=== PATIENT | male | born 1985 | race Caucasian/White ===

== ENCOUNTER → 2017-05-22 | Outpatient (CLI) | payer BC ==
--- NOTE | 2017-05-23 09:49 | RADRPT ---
PROCEDURE: XR Knee. CLINICAL INDICATION: Right knee pain TECHNIQUE: 3 images of the right knee are available for review. COMPARISON: None available FINDINGS: There is no acute fracture. Joint spaces are preserved. There is no joint effusion. There is a que stionable 2 mm body projecting along the posterior aspect the joint on the lateral view. Soft tissue s are grossly unremarkable. IMPRESSION: 1. No radiographic evidence of acute osseous abnormality. 2. Questionable 2 mm body projecting over the posterior aspect of the knee joint on the lateral vie w. RPTAT: UU .Richard Ríos MD, MD Date Time Electronically viewed and signed by .Richard Ríos MD, on 05/22/2017 16:00 .Desean/
== END | disposition home or self-care (01) ==
LOC: RAD 12:11
PROVIDERS: ATTEND Internal Medicine
DX: M17.11 Unilateral primary osteoarthritis, right knee (principal)
CPT/HCPCS: 73560

== ENCOUNTER 2017-07-23 17:47 | Inpatient (IN) | payer BC ==
[~2017-07-23] VITALS: Ht 172.7 cm; Wt 87.0 kg
[2017-07-23] MEDS ORDERED: ONDANSETRON 4 MG INJ IV STA (20:41)
[2017-07-23] MEDS ORDERED: morphine 4 MG/ML VIAL IV STA (20:41)
--- NOTE | 2017-07-23 20:54 | ERD ---
ER Documentation Chief Complaint Date/Time DATE: 07/23/17 TIME: 20:51 Chief Complaint ABD PAIN, NAUSEA, VOMITING, ONSET SEVERAL DAYS HPI This is a 31-year-old male who presents the emergency department today complaining of abdominal pain that started yesterday. He ate a small yesterday but is unsure if that is what causing his symptoms. Patient states he has been vomiting is been having difficulty keeping anything down. States he took Advil yesterday and Pepto-Bismol. States his stool today was black. States he feels constipated now states that yesterday he had a fever. ROS All systems reviewed and are negative except as per history of present illness. Medications Home Meds No Active Prescriptions or Reported Meds Allergies Allergies: Coded Allergies: No Known Drug Allergies (Verified Allergy, Unknown, 05/20/14) PMhx/Soc Medical and Surgical Hx: pt denies Medical Hx History of Surgery: Yes (LEFT KNEE) Anesthesia Reaction: No Hx Neurological Disorder: No Hx Respiratory Disorders: No Hx Cardiac Disorders: No Hx Psychiatric Problems: No Hx Miscellaneous Medical Probl: No Hx Alcohol Use: Yes (OCCASSIONAL) Hx Substance Use: No Hx Tobacco Use: Yes Smoking Status: Current every day smoker Physical Exam Vitals Vital Signs Date Time Temp Pulse Resp B/P Pulse Ox O2 Delivery O2 Flow Rate FiO2 07/23/17 17:54 98.6 90 18 132/81 97 Physical Exam Const: NAD Head: Atraumatic Eyes: Normal Conjunctiva ENT: Normal External Ears, Nose and Mouth. Neck: Full range of motion..~ No meningismus. Resp: Clear to auscultation bilaterally Cardio: Regular rate and rhythm, no murmurs Abd: Soft, diffuse lower abdominal pain non distended. Normal bowel sounds : Rectal exam shows no evidence of hemorrhoids externally. Skin: No petechiae or rashes Back: No midline or flank tenderness Ext: No cyanosis, or edema Neur: Awake and alert Psych: Normal Mood and Affect Result Diagram: 07/23/17205307/23/172053 Results 24 hrs Laboratory Tests Test 07/23/17 20:25 07/23/17 20:39 07/23/17 20:54 Urine Color YELLOW Urine Clarity CLEAR Urine pH 5.0 Urine Specific [place] 1.012 Urine Ketones NEGATIVEmg/dL Urine Nitrite NEGATIVEmg/dL Urine Bilirubin NEGATIVEmg/dL Urine Urobilinogen NEGATIVEmg/dL Urine Leukocyte Esterase NEGATIVELeu/ul Urine Hemoglobin NEGATIVEmg/dL Urine Glucose NEGATIVEmg/dL Urine Total Protein NEGATIVEmg/dl Stool Occult Blood NEGATIVE White Blood Count 9.310^3/ul Red Blood Count 4.8610^6/ul Hemoglobin 15.3g/dl Hematocrit 44.6% Mean Corpuscular Volume 91.8fl Mean Corpuscular Hemoglobin 31.5pg Mean Corpuscular Hemoglobin Concent 34.3g/dl Red Cell Distribution Width 13.0% Platelet Count 35144^3/UL Mean Platelet Volume 11.1fl Neutrophils % 59.7% Lymphocytes % 26.0% Monocytes % 9.8% Eosinophils % 4.0% Basophils % 0.1% Nucleated Red Blood Cells % 0.0/100WBC Neutrophils # 5.510^3/ul Lymphocytes # 2.410^3/ul Monocytes # 0.910^3/ul Eosinophils # 0.410^3/ul Basophils # 0.010^3/ul Nucleated Red Blood Cells # 0.010^3/ul Sodium Level 139mmol/L Potassium Level 3.8mmol/L Chloride Level 101mmol/L Carbon Dioxide Level 27mmol/L Anion Gap 15 Blood Urea Nitrogen 10mg/dl Creatinine 0.90mg/dl Glucose Level 96mg/dl Calcium Level 8.5mg/dl Total Bilirubin 0.3mg/dl Direct Bilirubin 0.00mg/dl Indirect Bilirubin 0.3mg/dl Aspartate Amino Transf (AST/SGOT) 22IU/L Alanine Aminotransferase (ALT/SGPT) 36IU/L Alkaline Phosphatase 69IU/L Total Protein 6.9g/dl Albumin 4.0g/dl Globulin 2.90g/dl Albumin/Globulin Ratio 1.37 Lipase 58U/L Current Medications Medications (Trade) Dose Ordered Sig/Prudence Route PRN Reason Start Time Stop Time Status Last Admin Dose Admin Morphine Sulfate (morphine) 4 mg ONCE STAT IV 07/23/17 20:41 07/23/17 20:43 DC 07/23/17 21:04 Ondansetron HCl (Zofran Inj) 4 mg ONCE STAT IV 07/23/17 20:41 07/23/17 20:43 DC 07/23/17 21:04 DIAGNOSTIC IMAGING REPORT Patient: CHELI VILLARREAL : 1985 Age: 31 Sex: M MR #: [id number] DOS: 07/23/172040 Ordering MD: BERONICA DINH PA-C Location: [facility] Room/Bed: PROCEDURE: CT abdomen and pelvis without intravenous contrast. CLINICAL INDICATION: Pain. TECHNIQUE: CT of the abdomen/pelvis was performed utilizing axial images with reconstructions in sagittal and coronal planes. The administered radiation dose is CTDI 13 mGy, DLP 778 mGy-cm. One or more of the following dose reduction techniques were used: automated exposure control, adjustment of the mA and/or kV according to patient size and/or use of iterative reconstruction technique. COMPARISON: No pertinent prior examinations were submitted for comparison. FINDINGS: Visualized Chest: The visualized lung bases are clear. Abdomen: The liver, spleen, pancreas, gallbladder,and adrenal glands are unremarkable. The kidneys are without hydronephrosis. Punctate nonobstructive calculi are noted within both kidneys. There is some mild to moderate dilatation of several small bowel loops throughout the abdomen. There are interspersed loops of less distended small bowel. No discrete transition point is seen. Some mild inflammatory changes surround some of the bowel loops along with some likely small bowel thickening. The appendix is normal. No intra-abdominal free air is seen. There is no evidence of intra-abdominal adenopathy or free fluid. Pelvis: There is no evidence of pelvic adenopathy or free fluid. The prostate and bladder are unremarkable. Osseous structures: Unremarkable. IMPRESSION: Mildly distended and likely thickened small bowel loops most compatible with enteritis and ileus. Some component of bowel obstruction is difficult to entirely exclude given the presence of both distended and collapsed loops of bowel. Bilateral nephrolithiasis. RPTAT: HIKT .Benedicto Gurrola MD, Date Time Electronically viewed and signed by .Benedicto Gurrola MD, on 07/23/2017 22:40 .T/ CC: BERONICA DINH PA-C Procedures/MDM This is a 31-year-old male who presents emergency department today complaining of abdominal pain, fevers, vomiting that started yesterday as well as some black stool. I suspect that the black stool is from taking the Pepto-Bismol and I have explained that to the patient however I did obtain a Hemoccult as well as laboratory workup and imaging. Laboratory workup shows no elevated white blood cell count. He is not anemic. Platelets are within normal limits. Electrolytes are within normal limits. Glucose is within normal limits. Liver enzymes are within normal limits. Lipase is within normal limits. UA is negative for infection Occult blood is negative CT abdomen pelvis noncontrast shows a mildly distended and likely thickened small bowel loops most compatible with enteritis and ileus. There is some component of bowel obstruction that is difficult to entirely exclude given the presence of both distention and collapsed loops of bowel. There are bilateral nephrolithiasis. This is likely the source of the patient's pain. Patient symptoms at this time is consistent with abdominal pain secondary to enteritis and ileus with possible bowel obstruction. I have discussed the results with Dr. Oneill is agreed to admit the patient. I have explained all results to the patient and patient has agreed to stay in the hospital for further evaluation. Patient was given morphine and Zofran here in the emergency department. Any further orders placed will be completed by Dr. Oneill or the admitting physician. Departure Diagnosis: Primary Impression: Enteritis Additional Impression: Ileus Condition: BERONICA Kunz PA-C Jul 23, 2017 20:54
[2017-07-23 21:02] LABS: ADD UMIC NO; UR ASCORBIC ACID NEGATIVE (NEGATIVE); UR BILIRUBIN (Dip) NEGATIVE (NEGATIVE); UR BLOOD (Dip) NEGATIVE (NEGATIVE); UR CLARITY CLEAR (CLEAR); UR COLOR YELLOW (YELLOW); UR GLUCOSE (Dip) NEGATIVE (NEGATIVE); UR KETONES (Dip) NEGATIVE (NEGATIVE); UR LEUKOCYTE ESTERASE (Dip) NEGATIVE Leu/ul (NEGATIVE); UR NITRITE (Dip) NEGATIVE (NEGATIVE); UR SPECIFIC GRAVITY (Dip) 1.012 (1.003-1.030); UR TOTAL PROTEIN (Dip) NEGATIVE (NEGATIVE); UR UROBILINOGEN (Dip) NEGATIVE (NEGATIVE)
[2017-07-23 21:08] LABS: BASOPHILS % 0.1 % (0.0-2.0); EOSINOPHILS # 0.4 10^3/ul (0.0-0.5); HEMATOCRIT 44.6 % (42.0-52.0); HEMOGLOBIN 15.3 g/dl (14.0-18.0); LYMPHOCYTES # 2.4 10^3/ul (0.8-2.9); MEAN CORPUSCULAR HEMOGLOBIN 31.5 pg (29.0-33.0); MEAN CORPUSCULAR HGB CONC 34.3 g/dl (32.0-37.0); MEAN CORPUSCULAR VOLUME 91.8 fl (82.0-101.0); MEAN PLATELET VOLUME 11.1 fl (7.4-10.4); MONOCYTE # 0.9 10^3/ul (0.3-0.9); MONOCYTES % 9.8 % (0.0-11.0); NEUTROPHIL # 5.5 10^3/ul (1.6-7.5); NEUTROPHILS % 59.7 % (39.0-77.0); PLATELET COUNT 211 10^3/UL (140-415); RED BLOOD COUNT 4.86 10^6/ul (4.70-6.10); WHITE BLOOD COUNT 9.3 10^3/ul (4.8-10.8)
[2017-07-23 21:26] LABS: ALBUMIN/GLOBULIN RATIO 1.37; BILIRUBIN,INDIRECT 0.3 mg/dl (0-1.1); BILIRUBIN,TOTAL 0.3 mg/dl (0.2-1.3); CALCIUM 8.5 mg/dl (8.4-10.2); CREATININE 0.9 mg/dl (0.61-1.24); POTASSIUM 3.8 mmol/L (3.5-5.1); TOTAL PROTEIN 6.9 g/dl (6.1-8.1)
--- NOTE | 2017-07-23 22:40 | RADRPT ---
PROCEDURE: CT abdomen and pelvis without intravenous contrast. CLINICAL INDICATION: Pain. TECHNIQUE: CT of the abdomen/pelvis was performed utilizing axial images with reconstructions in s agittal and coronal planes. The administered radiation dose is CTDI 13 mGy, DLP 778 mGy-cm. One or m ore of the following dose reduction techniques were used: automated exposure control, adjustment of the mA and/or kV according to patient size and/or use of iterative reconstruction technique. COMPARISON: No pertinent prior examinations were submitted for comparison. FINDINGS: Visualized Chest: The visualized lung bases are clear. Abdomen: The liver, spleen, pancreas, gallbladder,and adrenal glands are unremarkable. The kidneys are without hydronephrosis. Punctate nonobstructive calculi are noted within both kidne ys. There is some mild to moderate dilatation of several small bowel loops throughout the abdomen. There are interspersed loops of less distended small bowel. No discrete transition point is seen. Some mi ld inflammatory changes surround some of the bowel loops along with some likely small bowel thickeni ng. The appendix is normal. No intra-abdominal free air is seen. There is no evidence of intra-abdominal adenopathy or free fluid. Pelvis: There is no evidence of pelvic adenopathy or free fluid. The prostate and bladder are unremarkable. Osseous structures: Unremarkable. IMPRESSION: Mildly distended and likely thickened small bowel loops most compatible with enteritis and ileus. So me component of bowel obstruction is difficult to entirely exclude given the presence of both disten ded and collapsed loops of bowel. Bilateral nephrolithiasis. RPTAT: HIKT .Benedicto Gurrola MD, Date Time Electronically viewed and signed by .Benedicto Gurrola MD, on 07/23/2017 22:40 .T/
[2017-07-23] MEDS ORDERED: SOD CHLORIDE 0.9% 1,000 ML IV ONE (23:30)
[2017-07-24 04:34] VITALS: TEMP 97.9
[2017-07-24 05:24] VITALS: Ht 172.7 cm; Wt 87.0 kg
[2017-07-24 05:25] VITALS: BP 126/70; PULSE 70; RESP 18
[2017-07-24] MEDS ORDERED: morphine 4 MG/ML VIAL IV PRN (06:30)
[2017-07-24] MEDS ORDERED: ONDANSETRON 4 MG INJ IV PRN (06:30)
[2017-07-24] MEDS ORDERED: DEXTROSE 5%-0.45% NACL 1,000 ML IV SCH (06:30)
[2017-07-24 07:30] VITALS: BP 124/65; RESP 19
--- NOTE | 2017-07-24 09:15 | RADRPT ---
PROCEDURE: Ultrasound of the bilateral lower extremity venous system. CLINICAL INDICATION: Bilateral leg pain and swelling, deep venous thrombosis TECHNIQUE: Cox scale with and without compression, color doppler, spectral doppler of the venous system of the bilateral lower extremities was performed. Venous augmentation maneuvers were utilized . COMPARISON: No prior studies are available for comparison. FINDINGS: Right: Common femoral vein: Patent. Femoral vein: Patent. Popliteal vein: Patent. Calf veins: Patent. No soft tissue abnormalities are identified. Left: Common femoral vein: Patent. Femoral vein: Patent. Popliteal vein: Patent. Calf veins: Patent. No soft tissue abnormalities are identified. IMPRESSION: No evidence of a deep vein thrombosis within the bilateral lower extremities. RPTAT: AADD .Davie Hu MD, Date Time Electronically viewed and signed by .Davie Hu MD, on 07/24/2017 09:15 .B/
[2017-07-24] MEDS ORDERED: POTASSIUM CHLORIDE 30 MEQ in DEXTROSE 5%-0.45% NACL 1,000 ML IV SCH (10:05)
--- NOTE | 2017-07-24 10:10 | RADRPT ---
PROCEDURE: XR Abdomen. CLINICAL INDICATION: ABD PAIN TECHNIQUE: AP abdomen x-ray. COMPARISON: None. FINDINGS: The bowel gas pattern is normal. There is no evidence of obstruction. There are no abnormal calcific ations overlying the urinary tracts. The osseus structures are unremarkable. IMPRESSION: Unremarkable abdomen radiograph. Physician Will Date Time Electronically viewed and signed by Vincent Driver Physician on 07/24/2017 10:09 CS/
--- NOTE | 2017-07-24 10:38 | HP ---
DATE OF ADMISSION: 07/24/2017 CHIEF COMPLAINT AND HISTORY OF PRESENT ILLNESS: The patient is a 31-year-old gentleman well known t o me from previous followup, as outpatient, presenting to the ER with severe abdominal pain for the last 2 days. It started off 2 days ago with severe vomiting, vomited 5 times with abdominal distent ion and patient tried eating an apple yesterday, that is all he had all of yesterday and the patient had been having increasing abdominal pain and he has been taking Advil and also took Pepto-Bismol. He stated that he had bowel movements which were black. He also had a fever the day before. Denie s any dysuria or hematuria. The patient denies any history of peptic ulcer disease. No history of hepatitis or jaundice. No prior abdominal surgeries, no prior hospitalizations or any bowel obstruc tion. REVIEW OF SYSTEMS: HEAD: No history of headaches, focal weakness, or numbness. EYES: No blurry vision or glaucoma. ENT: Noncontributory. NECK: No history of thyroid disease. CHEST: No bronchitis, hay fever, or asthma. The patient does not smoke. HEART: No PND, orthopnea, palpitations. GASTROINTESTINAL: No prior gastrointestinal history of peptic ulcer disease, cholelithiasis. No ab dominal surgeries. GENITOURINARY: No history of hematuria or kidney stones. ALLERGIES: NO KNOWN ALLERGIES. FAMILY HISTORY: Noncontributory. MUSCULOSKELETAL: History of lower extremity pain since yesterday. No history of long distance air travel or DVT in the past. The patient does have right knee meniscus tear. PHYSICAL EXAMINATION: GENERAL: The patient was found to be afebrile. VITAL SIGNS: Temperature 98.0, blood pressure 124/65, respiratory rate 20 per minute. O2 saturatio n 98% on room air. HEENT: Head normocephalic. No pallor, cyanosis or icterus. Tongue is coated, whitish coating note d. No exudates noted over the oropharynx. NECK: Supple. No thyromegaly, bruits or lymphadenopathy. CHEST: Clinically clear. HEART: S1, S2 heard with no definite gallops. ABDOMEN: Mildly distended. Bowel sounds hypoactive. Mild diffuse tenderness without rebound. EXTREMITIES: No edema. Homans sign is negative. NEUROLOGIC: No localizing or lateralizing signs. LABORATORY DATA: Initial WBC count 9.3, hematocrit 44.3, platelet count 211,000. Potassium 3.8, BU N 10, creatinine 0.90. UA negative for blood or leukocyte esterase. Stool for OB is negative. CAT scan of abdomen and pelvis shows bilateral nephrolithiasis, distended and thickened small bowel loo ps compatible with enteritis and ileus. IMPRESSION: 1. Small-bowel obstruction with ileus. 2. Nephrolithiasis, no evidence of hematuria or urinary tract infection. 3. Lower extremity pain, no evidence of deep venous thrombosis on Doppler. PLAN: Keep the patient on bowel rest, IV hydration, ensure adequate potassium supplements and magne sium supplements. Will request repeat KUB and also a gastroenterology consultation with Dr. Moscoso. Dictated By: TANESHA RODAS MD SR/NTS Conf#: [id number] DID#: [id number]
[2017-07-24 11:37] LABS: BASOPHILS % 0.3 % (0.0-2.0); EOSINOPHILS # 0.2 10^3/ul (0.0-0.5); HEMATOCRIT 43.7 % (42.0-52.0); HEMOGLOBIN 14.4 g/dl (14.0-18.0); LYMPHOCYTES # 2.5 10^3/ul (0.8-2.9); LYMPHOCYTES % 32.3 % (15.0-51.0); MEAN CORPUSCULAR HEMOGLOBIN 30.3 pg (29.0-33.0); MONOCYTE # 0.8 10^3/ul (0.3-0.9); MONOCYTES % 10.6 % (0.0-11.0); NEUTROPHIL # 4.1 10^3/ul (1.6-7.5); NEUTROPHILS % 53.4 % (39.0-77.0); PLATELET COUNT 203 10^3/UL (140-415); RED BLOOD COUNT 4.75 10^6/ul (4.70-6.10); RED CELL DISTRIBUTION WIDTH 12.8 % (11.5-14.5); WHITE BLOOD COUNT 7.7 10^3/ul (4.8-10.8)
[2017-07-24 12:02] LABS: ALBUMIN 3.4 g/dl (3.3-4.9); ALBUMIN/GLOBULIN RATIO 1.06; BILIRUBIN,INDIRECT 0.4 mg/dl (0-1.1); BILIRUBIN,TOTAL 0.4 mg/dl (0.2-1.3); CALCIUM 8.7 mg/dl (8.4-10.2); CREATININE 0.81 mg/dl (0.61-1.24); TOTAL PROTEIN 6.6 g/dl (6.1-8.1)
[2017-07-24] MEDS: D5W-0.45 NACL + KCL 30 MEQ 1,000 ML IV SCH ×2 (12:13→20:16)
[2017-07-24 14:00] VITALS: BP 121/61; RESP 19
[2017-07-24] MEDS: CIPROFLOXACIN 400MG/D5W 200 ML IVPB SCH ×2 (15:08→20:16)
[2017-07-24] MEDS: metroNIDAZOLE 500 MG/NS (PMX) 100 ML IVPB SCH ×2 (16:09→22:01)
[2017-07-24 21:35] VITALS: BP 128/69; RESP 16
[2017-07-25 00:05] VITALS: BP 119/69; RESP 16
--- NOTE | 2017-07-25 02:19 | CONS ---
DATE OF ADMISSION: 07/24/2017 DATE OF CONSULTATION: GASTROENTEROLOGY CONSULTATION Dear Dr. Rodas: Thank you for your referral. HISTORY OF PRESENT ILLNESS: The patient is a pleasant 31-year-old gentleman, who came to the ER com plaining of abdominal pain confined to the right periumbilical area associated with nausea, vomiting and diarrhea. This happened after consuming food overnight from the restaurant. No GI bleeding, n o fever, no chills. He had mild headache, no chest pain, no shortness of breath, no or SENIOR SOFTWARE TESTER probl em. The patient has been taking Advil and Pepto-Bismol. REVIEW OF SYSTEMS: Knee surgery, otherwise negative. ALLERGIES: NONE. FAMILY HISTORY: Nothing contributory. PHYSICAL EXAMINATION GENERAL: Well built, nourished, not in distress. VITAL SIGNS: Stable. HEENT: Unremarkable. NECK: Supple, no thyromegaly, no lymphadenopathy. CARDIOVASCULAR: No murmur, gallop or click. LUNGS: Clear. ABDOMEN: Benign. EXTREMITIES: No edema. CENTRAL NERVOUS SYSTEM: Grossly within normal limits. LABORATORY DATA: CBC is normal. CMP is normal. CAT scan showed ileitis versus ileus. IMPRESSION: 1. Infectious enteritis, most probably bacterial versus viral. 2. Nephrolithiasis without any obstruction. 3. Lower extremity pain. PLAN: At this point is to start the patient on Cipro and Flagyl empirically, and if the symptoms im prove, then will start him on a liquid diet and gradually advance it and continue Cipro and Flagyl p .o. upon discharge. Dictated By: STUART SANTORO/DAVID Conf#: [id number] DID#: [id number] CC: TANESHA RODAS MD;*EndCC*
[2017-07-25] MEDS: D5W-0.45 NACL + KCL 30 MEQ 1,000 ML IV SCH ×3 (05:18→22:00)
[2017-07-25] MEDS: metroNIDAZOLE 500 MG/NS (PMX) 100 ML IVPB SCH ×3 (05:18→22:00)
[2017-07-25 05:22] LABS: BASOPHILS % 0.3 % (0.0-2.0); EOSINOPHILS # 0.3 10^3/ul (0.0-0.5); EOSINOPHILS % 3.7 % (0.0-7.0); HEMATOCRIT 43.3 % (42.0-52.0); HEMOGLOBIN 14.5 g/dl (14.0-18.0); LYMPHOCYTES # 2.2 10^3/ul (0.8-2.9); LYMPHOCYTES % 28.4 % (15.0-51.0); MEAN CORPUSCULAR HEMOGLOBIN 30.6 pg (29.0-33.0); MEAN CORPUSCULAR HGB CONC 33.5 g/dl (32.0-37.0); MEAN CORPUSCULAR VOLUME 91.4 fl (82.0-101.0); MEAN PLATELET VOLUME 11.3 fl (7.4-10.4); MONOCYTE # 0.7 10^3/ul (0.3-0.9); MONOCYTES % 9.3 % (0.0-11.0); NEUTROPHIL # 4.5 10^3/ul (1.6-7.5); NEUTROPHILS % 57.7 % (39.0-77.0); PLATELET COUNT 219 10^3/UL (140-415); RED BLOOD COUNT 4.74 10^6/ul (4.70-6.10); RED CELL DISTRIBUTION WIDTH 12.8 % (11.5-14.5); WHITE BLOOD COUNT 7.8 10^3/ul (4.8-10.8)
[2017-07-25 06:11] LABS: ALBUMIN 3.3 g/dl (3.3-4.9); BILIRUBIN,INDIRECT 0.5 mg/dl (0-1.1); BILIRUBIN,TOTAL 0.5 mg/dl (0.2-1.3); CREATININE 0.96 mg/dl (0.61-1.24); MAGNESIUM 1.8 mg/dl (1.7-2.5); POTASSIUM 4.1 mmol/L (3.5-5.1); TOTAL PROTEIN 6.6 g/dl (6.1-8.1)
[2017-07-25 07:24] VITALS: BP 132/73; RESP 19
[2017-07-25] MEDS: CIPROFLOXACIN 400MG/D5W 200 ML IVPB SCH ×2 (08:34→20:19)
--- NOTE | 2017-07-25 10:00 | CONS ---
Date/Time of Note Date/Time of Note DATE: 07/25/17 TIME: 09:59 Assessment/Plan Assessment/Plan Additional Assessment/Plan IMPRESSION: 1. Infectious enteritis, most probably bacterial versus viral. 2. Nephrolithiasis without any obstruction. 3. Lower extremity pain. PLAN: At this point is to start the patient on Cipro and Flagyl empirically, and if the symptoms improve, then will start him on a liquid diet and gradually advance it and continue Cipro and Flagyl p.o. upon discharge. Consultation Date/Type/Reason Admit Date/Time Jul 24, 2017 at 01:31 Initial Consult Date 24 HR Interval Summary Free Text/Dictation Patient feels better no nausea no vomiting no diarrhea. No abdominal pain Exam/Review of Systems Vital Signs Vitals Vital Signs Date Time Temp Pulse Resp B/P Pulse Ox O2 Delivery O2 Flow Rate FiO2 07/25/17 07:24 98.2 73 19 132/73 98 07/24/17 05:25 Room Air Intake and Output 07/24/17 07/24/17 07/25/17 15:00 23:00 07:00 Intake Total 300 ml 1050 ml 1100 ml Output Total 1500 ml Balance 300 ml 1050 ml -400 ml Exam Constitutional: alert, oriented, well developed Psych: nl mood/affect, no complaints Head: atraumatic, normocephalic Eyes: EOMI, PERRL, nl conjunctiva, nl lids, nl sclera ENMT: nl external ears & nose, nl lips & teeth, nl nasal mucosa & septum Neck: non-tender, supple Respiratory: clear to auscultation, normal air movement Cardiovascular: nl pulses, regular rate and rhythm Gastrointestinal: nl liver, spleen, non-tender, soft Musculoskeletal: nl extremities to inspection, nl gait and stance Extremities: normal pulses Neurological: [employer] HELPER II-XII intact, nl mental status, nl speech, nl strength Skin: nl turgor, No rash or lesions Lymph: nl lymph nodes Results Result Diagram: 07/25/17 0433 07/25/17 0433 Results 24 hrs Laboratory Tests Test 07/24/17 11:11 07/25/17 04:33 White Blood Count 7.7 7.8 Red Blood Count 4.75 4.74 Hemoglobin 14.4 14.5 Hematocrit 43.7 43.3 Mean Corpuscular Volume 92.0 91.4 Mean Corpuscular Hemoglobin 30.3 30.6 Mean Corpuscular Hemoglobin Concent 33.0 33.5 Red Cell Distribution Width 12.8 12.8 Platelet Count 203 219 Mean Platelet Volume 11.0 H 11.3 H Neutrophils % 53.4 57.7 Lymphocytes % 32.3 28.4 Monocytes % 10.6 9.3 Eosinophils % 3.0 3.7 Basophils % 0.3 0.3 Nucleated Red Blood Cells % 0.0 0.0 Neutrophils # 4.1 4.5 Lymphocytes # 2.5 2.2 Monocytes # 0.8 0.7 Eosinophils # 0.2 0.3 Basophils # 0.0 0.0 Nucleated Red Blood Cells # 0.0 0.0 Sodium Level 139 140 Potassium Level 4.0 4.1 Chloride Level 106 105 Carbon Dioxide Level 27 28 Anion Gap 10 # 11 Blood Urea Nitrogen 11 10 Creatinine 0.81 0.96 Glucose Level 90 96 Calcium Level 8.7 9.0 Total Bilirubin 0.4 0.5 Direct Bilirubin 0.00 0.00 Indirect Bilirubin 0.4 0.5 Aspartate Amino Transf (AST/SGOT) 27 23 Alanine Aminotransferase (ALT/SGPT) 39 39 Alkaline Phosphatase 66 65 Total Protein 6.6 6.6 Albumin 3.4 3.3 Globulin 3.20 3.30 H Albumin/Globulin Ratio 1.06 1.00 Amylase Level 51 Lipase 45 Magnesium Level 1.8 Medications Medications Current Medications Morphine Sulfate (morphine) 4 mg Q4H PRN IV PAIN LEVEL 7-10 Last administered on 07/24/17 07:58; Admin Dose 4 MG; Start 07/24/17 at 06:30 Ondansetron HCl 4 mg 4 mg Q6H PRN IV NAUSEA AND/OR VOMITING; Start 07/24/17 at 06:30 Potassium Chloride/Dextrose/ Sod Cl 1,000 ml @ 125 mls/hr Q8H IV Last administered on 07/25/17 05:18; Admin Dose 125 MLS/HR; Start 07/24/17 at 12: 30 Ciprofloxacin/ Dextrose 200 ml @ 200 mls/hr Q12 IVPB Last administered on 08:34; Admin Dose 200 MLS/HR; Start 07/24/17 at 14:30 Metronidazole (Flagyl 500 Mg (Pmx)) 100 ml @ 100 mls/hr Q8 IVPB Last administered on 10/19/17at 05:18; Admin Dose 100 MLS/HR; Start 07/24/17 at 14: 30 STUART MADRIGAL MD Jul 25, 2017 10:00
--- NOTE | 2017-07-25 14:25 | PN ---
DATE: 07/25/2017 SUBJECTIVE: The patient still has diffuse abdominal discomfort. Denies any fever or chills. No na usea, vomiting. PHYSICAL EXAMINATION GENERAL: The patient is awake, alert. VITAL SIGNS: Temperature 98.2, blood pressure 132/73. LUNGS: Clinically clear. HEART: S1, S2 heard. No definite gallops. EXTREMITIES: No edema (patient does not complain of any leg pain today). LABORATORY DATA: WBC count is 7.8, hematocrit 42.3, sodium 140, potassium 4.1, BUN 10, creatinine 0 .96. IMPRESSION: 1. Resolving ileus, likely secondary infectious enteritis. 2. Nephrolithiasis. Dr. Moscoso's recommendation is greatly appreciated. PLAN: We will continue Cipro and Flagyl and gradually increase his diet, increase activities, decre ase IV fluids. Dictated By: TANESHA RODAS MD SR/NTS Conf#: [id number] DID#: [id number]
[2017-07-25 15:39] VITALS: BP 110/61; RESP 18
[2017-07-25 19:34] VITALS: BP 123/82; RESP 22
[2017-07-26] MEDS: D5W-0.45 NACL + KCL 30 MEQ 1,000 ML IV SCH ×2 (01:00→14:43)
[2017-07-26 02:11] VITALS: BP 118/76; RESP 17
[2017-07-26] MEDS: metroNIDAZOLE 500 MG/NS (PMX) 100 ML IVPB SCH ×3 (05:53→22:36)
[2017-07-26 08:00] VITALS: BP 108/59; RESP 18
[2017-07-26] MEDS: CIPROFLOXACIN 400MG/D5W 200 ML IVPB SCH ×2 (09:59→20:54)
[2017-07-26 14:35] LABS: BASOPHILS % 0.3 % (0.0-2.0); EOSINOPHILS # 0.3 10^3/ul (0.0-0.5); HEMATOCRIT 47.3 % (42.0-52.0); HEMOGLOBIN 16.1 g/dl (14.0-18.0); LYMPHOCYTES # 2.3 10^3/ul (0.8-2.9); MEAN CORPUSCULAR HEMOGLOBIN 31.1 pg (29.0-33.0); MEAN CORPUSCULAR VOLUME 91.3 fl (82.0-101.0); MEAN PLATELET VOLUME 10.4 fl (7.4-10.4); MONOCYTE # 0.7 10^3/ul (0.3-0.9); MONOCYTES % 9.5 % (0.0-11.0); NEUTROPHIL # 4.4 10^3/ul (1.6-7.5); NEUTROPHILS % 56.6 % (39.0-77.0); PLATELET COUNT 251 10^3/UL (140-415); RED BLOOD COUNT 5.18 10^6/ul (4.70-6.10); RED CELL DISTRIBUTION WIDTH 12.4 % (11.5-14.5); WHITE BLOOD COUNT 7.8 10^3/ul (4.8-10.8)
--- NOTE | 2017-07-26 14:49 | PN ---
DATE: 07/26/2017 SUBJECTIVE: Patient continues to have mild abdominal discomfort, diffuse, had 3 bouts of diarrhea s conor dipper and drier today. Still on clear liquid diet, which he is able to tolerate, no nausea. PHYSICAL EXAMINATION GENERAL: The patient is afebrile. Temperature 98.2, blood pressure 108/59, O2 sat 95% room air. LUNGS: Clinically clear. ABDOMEN: Mildly distended. Bowel sounds hypoactive. Mild diffuse tenderness without rebound. EXTREMITIES: No edema. IMPRESSION: 1. Resolving ileus secondary to infectious enteritis. 2. Nephrolithiasis, nonobstructing. PLAN: Advance the diet. Recheck labs today. If patient is able to tolerate advancement of diet wi th improvement of symptoms consider discharge in the next [address] discussing [address] Moscoso. Dictated By: TANESHA RODAS MD, SR/DAVID Conf#: [id number] DID#: [id number]
[2017-07-26 15:02] LABS: CALCIUM 9.8 mg/dl (8.4-10.2); CREATININE 0.87 mg/dl (0.61-1.24); MAGNESIUM 1.9 mg/dl (1.7-2.5); POTASSIUM 4.2 mmol/L (3.5-5.1)
--- NOTE | 2017-07-26 17:32 | CONS ---
Date/Time of Note Date/Time of Note DATE: 07/26/17 TIME: 17:31 Assessment/Plan Assessment/Plan Additional Assessment/Plan Additional Assessment/Plan IMPRESSION: 1. Infectious enteritis, most probably bacterial versus viral. 2. Nephrolithiasis without any obstruction. 3. Lower extremity pain. 4. Diarrhea after resuming feeding Plan Stool for analysis Advance the diet to regular diet Consultation Date/Type/Reason Admit Date/Time Jul 24, 2017 at 01:31 24 HR Interval Summary Free Text/Dictation Complaints of diarrhea Patient is tolerating p.o. feeding. He is on a soft diet and wants to advance her to regular diet No abdominal pain Exam/Review of Systems Vital Signs Vitals Vital Signs Date Time Temp Pulse Resp B/P Pulse Ox O2 Delivery O2 Flow Rate FiO2 07/26/17 08:00 98.2 51 18 108/59 95 07/24/17 05:25 Room Air Intake and Output 07/25/17 07/25/17 07/26/17 15:00 23:00 07:00 Intake Total 1150 ml 1400 ml 1100 ml Output Total 600 ml 900 ml 1450 ml Balance 550 ml 500 ml -350 ml Exam Constitutional: alert, oriented, well developed Psych: nl mood/affect, no complaints Head: atraumatic, normocephalic Eyes: EOMI, PERRL, nl conjunctiva, nl lids, nl sclera ENMT: nl external ears & nose, nl lips & teeth, nl nasal mucosa & septum Neck: non-tender, supple Respiratory: clear to auscultation, normal air movement Cardiovascular: nl pulses, regular rate and rhythm Gastrointestinal: nl liver, spleen, non-tender, soft Musculoskeletal: nl extremities to inspection, nl gait and stance Extremities: normal pulses 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, nl mental status, nl speech, nl strength Skin: nl turgor, No rash or lesions Lymph: nl lymph nodes Results Result Diagram: 07/26/17 1424 07/26/17 1424 Results 24 hrs Laboratory Tests Test 07/26/17 14:24 White Blood Count 7.8 Red Blood Count 5.18 Hemoglobin 16.1 Hematocrit 47.3 Mean Corpuscular Volume 91.3 Mean Corpuscular Hemoglobin 31.1 Mean Corpuscular Hemoglobin Concent 34.0 Red Cell Distribution Width 12.4 Platelet Count 251 Mean Platelet Volume 10.4 Neutrophils % 56.6 Lymphocytes % 29.0 Monocytes % 9.5 Eosinophils % 4.0 Basophils % 0.3 Nucleated Red Blood Cells % 0.0 Neutrophils # 4.4 Lymphocytes # 2.3 Monocytes # 0.7 Eosinophils # 0.3 Basophils # 0.0 Nucleated Red Blood Cells # 0.0 Sodium Level 141 Potassium Level 4.2 Chloride Level 102 Carbon Dioxide Level 28 Anion Gap 15 Blood Urea Nitrogen 10 Creatinine 0.87 Glucose Level 88 Calcium Level 9.8 Magnesium Level 1.9 Medications Medications Current Medications Morphine Sulfate (morphine) 4 mg Q4H PRN IV PAIN LEVEL 7-10 Last administered on 07/24/17 07:58; Admin Dose 4 MG; Start 07/24/17 at 06:30 Ondansetron HCl 4 mg 4 mg Q6H PRN IV NAUSEA AND/OR VOMITING; Start 07/24/17 at 06:30 Potassium Chloride/Dextrose/ Sod Cl 1,000 ml @ 75 mls/hr [id number] IV Last administered on 07/26/17 14:43; Admin Dose 75 MLS/HR; Start 07/24/17 at 12:30 Ciprofloxacin/ Dextrose 200 ml @ 200 mls/hr Q12 IVPB Last administered on 09:59; Admin Dose 200 MLS/HR; Start 07/24/17 at 14:30 Metronidazole (Flagyl 500 Mg (Pmx)) 100 ml @ 100 mls/hr Q8 IVPB Last administered on 07/26/17 13:35; Admin Dose 100 MLS/HR; Start 07/24/17 at 14: 30 STUART MADRIGAL MD Jul 26, 2017 17:32
[2017-07-26 19:47] VITALS: BP 118/71; RESP 22
[2017-07-27] MEDS: D5W-0.45 NACL + KCL 30 MEQ 1,000 ML IV SCH ×2 (03:40→05:33)
[2017-07-27] MEDS: metroNIDAZOLE 500 MG/NS (PMX) 100 ML IVPB SCH (05:32)
[2017-07-27 07:53] VITALS: BP 118/66; RESP 20
[2017-07-27] MEDS: CIPROFLOXACIN 400MG/D5W 200 ML IVPB SCH (08:35)
--- NOTE | 2017-07-27 15:58 | CONS ---
Date/Time of Note Date/Time of Note DATE: 07/27/17 TIME: 15:57 Assessment/Plan Assessment/Plan Chief Complaint/Hosp Course IMPRESSION: 1. Infectious enteritis, most probably bacterial versus viral. 2. Nephrolithiasis without any obstruction. 3. Lower extremity pain. 4. Diarrhea after resuming feeding Plan f/u stool studies Advance the diet to regular diet ok from GI perspective to dc and if diarrhea recurs can f/u with Dr. Moscoso. Problems: Consultation Date/Type/Reason Admit Date/Time Jul 24, 2017 at 01:31 Initial Consult Date 24 HR Interval Summary Free Text/Dictation diarrhea improved, no n/v, no abdomial pain Constitutional: improved Exam/Review of Systems Vital Signs Vitals Vital Signs Date Time Temp Pulse Resp B/P Pulse Ox O2 Delivery O2 Flow Rate FiO2 07/27/17 07:53 98.0 56 20 118/66 97 07/24/17 05:25 Room Air Intake and Output 07/26/17 07/26/17 07/27/17 15:00 23:00 07:00 Intake Total 300 ml 200 ml 2100 ml Output Total 1350 ml Balance 300 ml 200 ml 750 ml Exam Constitutional: alert, oriented, well developed Psych: nl mood/affect, no complaints Head: atraumatic, normocephalic Eyes: EOMI, nl conjunctiva, nl lids ENMT: nl external ears & nose, nl lips & teeth, nl nasal mucosa & septum Neck: non-tender, supple Respiratory: clear to auscultation, normal air movement Cardiovascular: nl pulses, regular rate and rhythm Gastrointestinal: bowel sounds, non-tender, soft Results Result Diagram: 07/26/17 1424 07/26/17 1424 JANIA SANCHEZ MD Jul 27, 2017 15:58
--- NOTE | 2017-07-28 13:35 | DS ---
DATE OF ADMISSION: 07/24/2017 DATE OF DISCHARGE: 07/27/2017 FINAL DIAGNOSES: 1. Ileus secondary to infectious enteritis, resolved. 2. Nephrolithiasis with no evidence of obstruction. 3. Lower extremity pain with no evidence of deep venous thrombosis. HOSPITAL COURSE: The patient is a 31-year-old gentleman well known to me from previous followup up in the office, presenting with a 2-day history of vomiting, abdominal distention with fever and was evaluated in the emergency room. CAT scan showed bilateral nephrolithiasis, distended and thickened small bowel loops compatible with enteritis and ileus. The patient also had lower extremity pain a nd there was no evidence of DVT clinically and was confirmed with a Doppler study. The patient was placed on intravenous hydration along with potassium supplements. Nausea improved with Zofran and p atient was seen by Dr. Moscoso from GI standpoint who recommended a course of Flagyl and Cipro and he also ordered stool studies which showed coliform on stool culture on the preliminary. Stool for C. diff was negative and the patient was discharged home on a course of Cipro for 5 days. The patient will be followed in my office over the course of next 2 weeks. The patient also has a sebaceous cy st on the right temporal area. Will follow it up as outpatient, consider excision if needed. DISCHARGE CONDITION: Much improved. Dictated By: TANESHA RODAS MD, SR/NTS Conf#: [id number] DID#: [id number]
== END 2017-07-27 15:15 | disposition home or self-care (01) | DRG 389 ==
LOC: FTE 17:47 → MS1 07-24 01:31
PROVIDERS: ADMIT Internal Medicine; ATTEND Internal Medicine
DX: K56.0 Paralytic ileus (principal); A09 Infectious gastroenteritis and colitis, unspecified; R11.2 Nausea with vomiting, unspecified; F17.210 Nicotine dependence, cigarettes, uncomplicated; N20.0 Calculus of kidney; M79.604 Pain in right leg
CPT/HCPCS: 74000; 74176; 80048; 80053; 81003; 82150; 82270; 83690; 83735; 85025; 87045; 87075; 93970; J0744; J2270; J2405; J3480; J7030; J7042

== ENCOUNTER → 2017-09-14 | Outpatient (CLI) | END | disposition home or self-care (01) ==

== ENCOUNTER 2017-11-22 18:47 | Emergency (ER) | END 2017-11-23 00:05 | disposition home or self-care (01) ==

== ENCOUNTER → 2017-12-11 | Outpatient (CLI) | END | disposition home or self-care (01) ==

== ENCOUNTER 2017-12-25 05:41 | Day surgery (SDC) | END 2017-12-25 12:30 | disposition home or self-care (01) ==

== ENCOUNTER → 2018-03-04 | Outpatient (CLI) | END | disposition home or self-care (01) ==

== ENCOUNTER → 2018-05-24 | Outpatient (CLI) | END | disposition home or self-care (01) ==

== ENCOUNTER → 2018-06-16 | Outpatient (CLI) | END | disposition home or self-care (01) ==

== ENCOUNTER 2018-06-25 05:55 | Day surgery (SDC) | END 2018-06-25 10:50 | disposition home or self-care (01) ==